=== PATIENT | male | born 1995 | race Caucasian/White ===

== ENCOUNTER 2024-12-18 10:03 | Emergency (ER) | payer MEDICAID ==
[~2024-12-18] VITALS: Ht 188 cm; Wt 100.2 kg
[2024-12-18 10:15] VITALS: BP 158/96; PULSE 79; RESP 18; TEMP 97.4; O2SAT 100
--- NOTE | 2024-12-18 10:17 | Physician Documentation ---
History of Present Illness ~ Chief Complaint: Medical Clearance Stated Complaint: MED CLEARENCE Time Seen by MD: 10:16 HPI 29-year-old male presents to the ED requesting medical clearance secondary to chronic alcohol abuse disorder. He states that he drinks 1000 mL of hard alcohol per day. 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 He does not currently have admission to a alcohol recovery program but is attempting to get medical clearance for the next 24 hours Does not complain of any anxiety at this time states he drank this morning. Day of Onset: Dec 18, 2024 Medication Reconciliation Allergies: Coded Allergies: No Known Allergies (Unverified , 12/18/24) Review of Systems All Other Systems at this time: Reviewed and Negative ROS As stated above in the HPI, otherwise all systems are reviewed and negative. Physical Exam Physical Exam General: Alert, no apparent distress. Respiratory: Lungs clear, no respiratory distress. Cardiovascular: Regular rate and rhythm, no murmurs. Gastrointestinal: Soft, nontender, nondistended. Bowels sounds present. Neurologic: Oriented x4. Psychiatric: Normal mood and affect. Skin: Normal color, warm and dry. No edema, no ecchymosis. Progress Results/Orders Results/Orders Vital Signs 12/18/24 10:15 Temp 97.4 Pulse 79 Resp 18 B/P (MAP) 158/96 Pulse Ox 100 Medical Decision Making Findings Patient was not present with any acute signs of ETOH withdrawal. However I do smell alcohol on him at this time.. States he was never has been hospitalized in his vitals are reassuring. The medically clear him for a 24 hour. Differential Dx:Considerations: Include: Intoxication-Alcohol, Intoxication- Other drug, Personality disorder, Substance abuse disorder, Acute delirium, Closed head injury, Cervical spine injury, Skull fracture, Fracture(s), Abrasion, Contusion, Foreign body, Hematoma, Laceration, Alcohol withdrawl syndrom, Encephalopathy, Hepatitis, Medically stable, Other Departure Disposition: 01 HOME / SELF CARE / HOMELESS Impression: Primary Impression: General medical exam Condition: Stable Discharge Instructions: Medical Screening Exam Additional Instructions: Medically cleared for rehab. Referrals: NO PRIMARY CARE PROVIDER (PCP) Education Educated: Patient Educated regarding: diagnosis Signature Scribe Signature: g Attestation: The note accurately reflects work and decisions made by me.Clay Miguel - [employer] HEL[employer] 12/18/24 16:17 CLAY MIGUEL [employer] HELPER Dec 18, 2024 10:17
== END 2024-12-18 10:23 | disposition home or self-care (01) ==
LOC: ER 10:04
DX: F10.10 Alcohol abuse, uncomplicated (principal); Y90.9 Presence of alcohol in blood, level not specified
CPT/HCPCS: 99281

== ENCOUNTER 2025-04-16 12:34 | Emergency (ER) | payer MEDICAID ==
[~2025-04-16] VITALS: Ht 177.8 cm; Wt 81.2 kg
[2025-04-16 12:47] VITALS: TEMP 98.4
--- NOTE | 2025-04-16 14:26 | Physician Documentation ---
History of Present Illness ~ Chief Complaint: Medical Clearance Stated Complaint: MED CLEARENCE Time Seen by MD: 14:57 HPI This is a 29-year-old male who presents requesting medical clearance to enter a detox facility to get sober from alcohol, patient reports last use of alcohol today and that he drank a pt of hard liquor, patient reports that he drinks heavily every day indicating a pt of hard liquor daily or more. Patient is unsure which detox facility he has scheduled to attend. Medication Reconciliation Allergies: Coded Allergies: No Known Allergies (Unverified , 12/18/24) Scheduled PRN Chlordiazepoxide Hcl (Librium), 25 MG PO BID PRN for for anxiety/agitation Past Medical History Past Medical History: No Pertinent History Alcohol Use: Abuse Review of Systems ROS As stated above in the HPI, otherwise all systems are reviewed and negative. Physical Exam Vital Signs: Temperature: 98.4, Source: Temporal, Heart Rate: 88, Respiratory Rate: 18, BP: 154/113, Pulse Oximetry: 99, Weight: 81.200 Oxygen Flow Rate: 0 Physical Exam VITALS: Reviewed and as above. GENERAL: Alert, nontoxic appearing, no apparent distress. HEENT: PERRLA, EOMI RESPIRATORY: No increased work of breathing, no respiratory distress, speaking in full clear sentences, clear lung sounds in all burt CV: Regular rate and rhythm no murmur BACK: No CVA tenderness, no central spinal tenderness GI: Bowel sounds present, nondistended, soft, nontender, no rebound, no guarding NEURO: No tremor. Oriented x4, GCS 15 PSYCH: Normal mood and affect, no agitation, non anxious appearing Progress Results/Orders Results/Orders Vital Signs 04/16/25 04/16/25 12:47 16:38 Temp 98.4 Pulse 88 75 Resp 18 18 B/P (MAP) 154/113 148/107 (121) Pulse Ox 99 100 O2 Flow Rate 0 0 Medical Decision Making Findings This 29-year-old male presented requesting medical clearance to enter rehab program for alcohol abuse, patient's last drink was approximately 1 hour prior to arrival, physical exam was benign without evidence of active alcohol withdrawal and patient reported no history of severe alcohol withdrawal sympt oms. Patient reports feeling otherwise well with no physical physical or mental health concerns reported. As patient is at risk for alcohol withdrawal due to history of heavy drinking he will require medical assistance for withdrawal from alcohol, patient has responsible adult and will be entering a inpatient detox and treatment facility without medical management capability though is felt to be reliable to maintain sobriety while being provided medication assistance. Patient is medically cleared to enter rehab facility. Cures report ran prior to controlled substance prescribing. Patient discharged with course of Librium for alcohol withdrawal symptoms. Patient and family member provided home care instructions, follow up instructions, and return to care precautions which both patient and family member verbalized understanding. Differential Dx:Considerations: Include: Intoxication-Alcohol, Intoxication- Other drug, Personality disorder, Substance abuse disorder, Acute delirium, Alcohol withdrawl syndrom Departure Time of Disposition: 16:12 Disposition: 01 HOME / SELF CARE / HOMELESS Impression: Primary Impression: Alcohol withdrawal Qualified Codes: F10.930 - Alcohol use, unspecified with withdrawal, uncomplicated Additional Impression: General medical exam Discharge Instructions: Alcohol Withdrawal Syndrome, [id number], Medical Screening Exam Additional Instructions: You are medically cleared to enter your detox and rehab program. Please use the prescribed medications to help with withdrawal symptoms. Please follow up with your primary care provider in the next few days. Please return to the emergency department for any new or worsening concerning symptoms including but not limited to severe withdrawal symptoms, seizures, or difficulty breathing. Referrals: NO PRIMARY CARE PROVIDER (PCP) Prescriptions Chlordiazepoxide Hcl (Librium) 25 Mg Capsule 25 MG PO BID PRN for for anxiety/agitation MDD 150 mg for 14 Days, #32 CAP Use 2 tablets by mouth 3 times a day for 2 days, then 2 tablets twice a day for 2 days, then 1 tablet 3 times a day for 2 days, then 1 tablet twice a day for 2 days, then 1 tablet a day for 2 days Prov: ISABEL DUMAS 04/16/25 Education Educated: Patient, Family Educated regarding: diagnosis, treatment, prognosis, need for follow up Signature Scribe Signature: No scribe Attestation: The note accurately reflects work and decisions made by me.JOSE Nettles 04/16/25 20:02 ISABEL DUMAS Apr 16, 2025 14:26
[2025-04-16] MEDS ORDERED: CHLO25CA10 PO (16:11)
[2025-04-16 16:38] VITALS: BP 148/107; PULSE 75; RESP 18; O2SAT 100
== END 2025-04-16 16:41 | disposition home or self-care (01) ==
LOC: ER 12:35
DX: F10.139 Alcohol abuse with withdrawal, unspecified (principal); Y90.9 Presence of alcohol in blood, level not specified
CPT/HCPCS: 99283

== ENCOUNTER 2025-05-31 13:23 | Emergency (ER) | payer MEDICAID ==
[~2025-05-31] VITALS: Ht 188 cm; Wt 102.4 kg
[~2025-05-31 13:23] MED LIST: CHLO25CA10 PO
[2025-05-31 13:30] VITALS: TEMP 97.9
--- NOTE | 2025-05-31 15:25 | Physician Documentation ---
HPI ~ General Chief Complaint: Medication Refill Stated Complaint: DETOX MED REQUEST Time Seen by MD: 15:20 History of Present Illness HPI Comments 29-year-old male with a history of alcoholism presents requesting evaluation for detox. Says two days ago he stopped drinking and was drinking overall pt today. States he wants to attend a recovery center. Requesting medical management for withdrawals. Has any history of seizures reports moderately high blood pressure and anxiety Without Medications Since: May 31, 2025 Medication Reconciliation Allergies: Coded Allergies: No Known Allergies (Unverified , 05/31/25) Scheduled PRN Chlordiazepoxide Hcl (Librium), 25 MG PO BID PRN for for anxiety/agitation Past Medical History Past Medical History: No Pertinent History Alcohol Use: Abuse Review of Systems All Other Systems at this time: Reviewed and Negative ROS As stated above in the HPI, otherwise all systems are reviewed and negative. Physical Exam Physical Exam Vital Signs: Temperature: 97.9, Heart Rate: 98, Respiratory Rate: 18, BP: 172/114, Pulse Oximetry: 99, Weight: 102.400 Oxygen Flow Rate: 0 Physical Exam General: Alert, no apparent distress. Respiratory: Lungs clear, no respiratory distress. Cardiovascular: Regular rate and rhythm, no murmurs. Gastrointestinal: Soft, nontender, nondistended. Bowels sounds present. Neurologic: Oriented x4. Psychiatric: Normal mood and affect. Skin: Normal color, warm and dry. No edema, no ecchymosis. Progress Results/Orders Results/Orders Vital Signs 05/31/25 13:30 Temp 97.9 Pulse 98 Resp 18 B/P (MAP) 172/114 Pulse Ox 99 O2 Flow Rate 0 Medical Decision Making Findings Patient's start this patient on Librium and naltrexone to help with withdrawals and tapering of alcohol. Gave him a single dose of hydralazine to reduce his blood pressure today. We will need to follow up in the outpatient setting and did further scripts there along with attending recovery program Differential Dx:Considerations: Include: Adverse circumstances, Economic, Psychosocial, Medical services unavail., Medication refill, Medication non- compliance, Other Departure Disposition: HOME / SELF CARE / HOMELESS Impression: Primary Impression: Alcohol withdrawal Condition: Improved Discharge Instructions: Alcohol Abuse and Dependence Information, Adult Referrals: NO PRIMARY CARE PROVIDER (PCP) Prescriptions Naltrexone Hcl (Naltrexone Hcl) 50 Mg Tablet 1 TAB PO DAILY for 30 Days, #30 TAB 0 Refills Prov: CLAY MIGUEL NP 05/31/25 Chlordiazepoxide Hcl (Librium) 25 Mg Capsule 25 MG PO TID for alcohol withdrawl for 5 Days, #15 CAP 0 Refills Prov: CLAY MIGUEL NP 05/31/25 Signature Scribe Signature: Attestation: Scribed for Clay Miguel Np by Clay Maddox NP . 05/31/25 15:33 CLAY MIGUEL NP May 31, 2025 15:25
[2025-05-31] MEDS ORDERED: CHLO25CA10 PO (15:28)
[2025-05-31] MEDS ORDERED: NALT50TA5 PO (15:28)
[2025-05-31 16:06] VITALS: BP 159/118; PULSE 83; RESP 16; O2SAT 98
== END 2025-05-31 16:11 | disposition home or self-care (01) ==
LOC: ER 13:23
DX: F10.239 Alcohol dependence with withdrawal, unspecified (principal); F41.9 Anxiety disorder, unspecified; Y90.9 Presence of alcohol in blood, level not specified
CPT/HCPCS: 99283